=== PATIENT | female | born 1975 | race Caucasian/White ===

== ENCOUNTER 2016-09-01 08:55 | Emergency (ER) ==
--- NOTE | 2016-09-01 10:42 | PROVIDER DOCUMENTATION ---
HPI-Musculoskeletal Pain/Inj - GENERAL Chief Complaint: Extremity Pain Stated Complaint: EXTREMITY INJURY Time Seen by Provider: 09/01/16 10:17 Source: patient - HX OF PRESENT ILLNESS-MUSKULOSKELTAL Nature of Presenting Problem: 40 yo female presents to ER with c/o right hand and wrist pain and swelling for the past 3 weeks. She states she injured it pulling on a door that was stuck. She states that it does not hurt lying still but when she moves it it hurts in the lower hand wrist area. Quality of Pain: reports: aching, sharp Severity in ED: moderate Onset/Duration: other (3 weeks ago) Timing: still present Modifying Factors: improves with: movement (worsens), palpation (worsens) Any recent injury?: Yes (3 weeks ago) Locality of Occurance: Home Similar Symptoms Previously?: No Recently seen or treated by another doctor?: No - UPPER EXTREMITY PAIN/INJURY Extremities Pain Location: wrist: right, hand: right Context / Method of Injury: reports: twisted Review of Systems - Adult - REVIEW OF SYSTEMS - ADULT Constitutional: reports: no symptoms reported Eyes: reports: no symptoms reported Ears, Nose, Mouth & Throat: reports: no symptoms reported Cardiovascular: reports: no symptoms reported Respiratory: reports: no symptoms reported Gastrointestinal: reports: no symptoms reported Genitourinary: reports: no symptoms reported Musculoskeletal: reports: see HPI, joint pain, joint swelling Integumentary: reports: no symptoms reported Neurological: reports: no symptoms reported Psychiatric: reports: no symptoms reported Endocrine: reports: no symptoms reported Hematologic/Lymphatic: reports: no symptoms reported Allergic/Immunologic: reports: no symptoms reported All Other Systems: Reviewed and Negative Past History - Adult - PAST MEDICAL HISTORY-ADULT Review of Records: reports: Old Records Reviewed, Nursing Assessment Review, Medications Reviewed, Social history reviewed & non-contributory. Major Childhood Illnesses: reports: denies history Cardiovascular: reports: HTN Respiratory: reports: asthma, COPD, sleep apnea Gastrointestinal: reports: GERD Obstetrical/Gynecological: reports: denies history Genitourinary: reports: denies history Musculoskeletal: reports: denies history Neurological: reports: degenerative disease Psychiatric: reports: anxiety, depression Endocrine/Immune: reports: denies history Other Conditions: reports: denies history - PRIOR SURGERIES/PROCEDURES Surgical/Procedure History: reports: appendectomy, BTL, , other ( removal of toenails) - IMMUNIZATION STATUS Childhood Immunizations: See Nurse Assessment Flu Vaccine: See Nurse Assessment - FAMILY HISTORY Family History: reviewed, not pertinent - SOCIAL HISTORY Smoking: cigarettes, greater than 1 pack/day (1 ppd) Provider spent 3-5 mins advising pt. on dangers of tobacco.: Discussed manners to quit use, and f/u contacts for add'l counseling. Substance Use: none/never, denies Alcohol Use Frequency: never Living Situation: family Physical Exam-Injury Related - Physical Exam-Injury Related Initial Vital Signs Reviewed: Yes General Appearance: appears well, alert, no apparent distress Eyes: PERRL/EOMI Head, Ears, Nose, Mouth & Throat: normocephalic/atraumatic Respiratory: no respiratory distress Cardiovascular: normal peripheral pulses Peripheral Pulses: radial (R): 2+ Extremity: swelling (right wrist), tenderness (right wrist), other (pain with ROM) Integumentary: normal color, warm/dry Neurologic: grossly normal Psych/Mental Status: normal mood/affect, normal thought content, normal thought process, oriented x 3 - Glascow Coma Score Best Eye Response ([place]): (4) open spontaneously Best Verbal Response ([place]): (5) oriented Best Motor Response ([place]): (6) obeys commands [place] Total: 15 Progress - PLAN OF CARE/RESULTS Progress/Plan/Lab Results: 1115-Discussed x-ray results/dx/tx/discharge and follow up with orthopedic doctor; she verbalized understanding. Orders Category Date Time Status Wrist Splint DIRECTED Care 09/01/16 11:16 Active HAND COMPLETE RIGHT [RAD] Stat Exams 09/01/16 10:27 Taken WRIST COMPLETE RIGHT [RAD] Stat Exams 09/01/16 10:27 Taken Vital Signs - 24 hr 09/01/16 09/01/16 09:10 09:15 Temperature 98.6 F Pulse Rate 103 H 103 H Respiratory 20 20 Rate Blood Pressure 94/64 118/78 O2 Sat by Pulse 96 Oximetry - XRAY 1 XRAY: Right XRAY Study: Wrist, Hand Impression: Normal (NAD) XRAY Interpretation: Interpreted by Dr. Hadley Departure - Departure Time of Disposition Order: 11:21 DIAGNOSIS: Wrist pain, right, Swelling of joint, wrist, right Sprain of wrist, right Qualifiers: Encounter type: initial encounter Qualified Code(s): S63.501A - Unspecified sprain of right wrist, initial encounter Disposition: HOME 01 Certified Medical Emergency: Emergent Condition: Good Additional Instructions: Follow up with orthopedic doctor as needed. Take ibuprofen 600mg every 6 hours for pain. Wear wrist splint. Take medications as prescribed. ED Follow Up Instructions: You have been treated by a care provider in the Emergency Department. These instructions are being provided to you so you can have an understanding of how to care for yourself upon discharge. Upon discharge from the Emergency Department, you are responsible for making arrangements for follow-up care by a physician of your choice. Take all prescribed medications as directed. Return to the Emergency Department immediately for any new or worsening symptoms. You may call the Physician Referral phone number at [phone] to obtain a list of Physicians who are taking new patients. Prescriptions: Methylprednisolone [Medrol Dosepak] 4 mg PO DIRECTED #1 package Acetaminophen with Codeine [Tylenol with Codeine #3] 1 each PO Q6H PRN PRN #10 tablet PRN Reason: Pain Referrals: Abe Davila MD [Primary Care Provider] - Chloe Ureña MD [STAFF PHYSICIAN] - Attestation - Physician/ [place] Attestation Patient care was provided by Advanced Practice Provider:: Yes Advanced Practice Provider:: Christina Stevenson Advanced Practice Provider documentation review:: The Mid-level provider documentation, treatment plan and medical decision making was reviewed by the physician who agrees with all treatment and medical decision making by the [facility].
--- NOTE | 2016-09-01 11:25 | Diag Imaging Result Document ---
PROCEDURE NAME: WRIST COMPLETE RIGHT - 09/01/2016 RIGHT WRIST, 3 VIEWS: FINDINGS: There is no evidence of acute fracture or dislocation. Compared to 10/20/2015, there has been no significant change in the appearance of the wrist. IMPRESSION: No acute disease.
--- NOTE | 2016-09-01 11:27 | Diag Imaging Result Document ---
PROCEDURE NAME: HAND COMPLETE RIGHT - 09/01/2016 RIGHT HAND, 3 VIEWS: FINDINGS: There is no evidence of fracture or dislocation. No other definite bony abnormalities are present. IMPRESSION: No acute disease.
[2016-09-01 11:42] VITALS: BP 139/94
== END 2016-09-01 11:49 | disposition home or self-care (01) ==
LOC: P.ED 08:55
DX: S63.501A Unspecified sprain of right wrist, initial encounter (principal); M25.531 Pain in right wrist; M25.431 Effusion, right wrist; M79.641 Pain in right hand; I10 Essential (primary) hypertension; J44.9 Chronic obstructive pulmonary disease, unspecified; F17.210 Nicotine dependence, cigarettes, uncomplicated; Z71.6 Tobacco abuse counseling; X58.XXXA Exposure to other specified factors, initial encounter
CPT/HCPCS: 99283

== ENCOUNTER 2018-12-25 07:25 | Inpatient (IN) ==
[2018-12-25] MEDS ORDERED: DUONEB (A & A) INH ONE ×2 (07:44)
[2018-12-25] MEDS ORDERED: SOLU-MEDROL IV ONE (07:44)
[2018-12-25] MEDS ORDERED: ZOSYN 4.5 GM in NS 100 ML IV ONE ×2 (07:44→07:45)
[2018-12-25] MEDS ORDERED: NS 1,000 ML IV ONE (07:45)
[2018-12-25 08:25] LABS: BILIRUBIN URINE NEGATIVE (NEGATIVE); BLOOD URINE 3+ (NEGATIVE); CLARITY CLEAR (CLEAR); COLOR YELLOW; GLUCOSE URINE NEGATIVE (NEGATIVE); KETONE URINE NEGATIVE (NEGATIVE); LEUKOCYTES URINE NEGATIVE (NEGATIVE); NITRITE URINE NEGATIVE (NEGATIVE); PH URINE 6.5; UROBILINOGEN URINE NORMAL
[2018-12-25 08:26] LABS: URINE EPITHELIAL CELLS >10 /HPF (<10); URINE RBC 20-40 /HPF (<10); URINE SOURCE CLEAN CATCH; URINE WBC <10 /HPF (<10)
[2018-12-25 08:31] LABS: BASO# 0.03 X1000 (0.0-0.2); BASO% 0.3 % (0.0-0.8); EOS# 0.27 X1000 (0.0-0.7); EOS% 2.3 % (0.0-10.0); HEMATOCRIT 34.4 % (37.0-47.0); HEMOGLOBIN 11.1 g/dL (12.0-16.0); IMM GRAN# 0.03 X1000 (0.0-0.04); IMM GRAN% 0.3 % (0.0-0.5); LYMPH# 2.55 X1000 (1.2-3.4); MCH 29.8 PG (27-31); MCHC 32.3 g/dL (33-37); MCV 92.5 FL (81-99); MONO# 0.92 X1000 (0.11-0.59); MONO% 7.9 % (1.7-9.3); MPV 11.2 FL (7.4-10.4); NEUT# 7.81 X1000 (1.4-6.5); NEUT% 67.2 % (42.2-75.2); PLT 279 X1000 (130-400); RBC 3.72 XMIL (4.2-5.4); WBC 11.61 X1000 (4.8-10.8)
[2018-12-25 08:34] LABS: INR 0.92; PROTIME 12.8 Seconds (11.0-16.0)
[2018-12-25 08:35] LABS: PTT 30.3 Seconds (22.3-41.8)
[2018-12-25 08:47] LABS: AGAP 10; ALBUMIN 3.5 g/dL (3.5-5.0); ALKALINE PHOSPHATASE 60 U/L (32-104); BUN 18 mg/dL (8-22); CALCIUM 8.7 mg/dL (8.8-10.2); CHLORIDE 107 mmol/L (98-107); CK PROFILE 66 U/L (24-173); COSMO 283; CREATININE 0.5 mg/dL (0.5-0.9); ESTIMATED GFR > 60; GLUCOSE 96 mg/dL (70-104); GOT 15 U/L (10-30); GPT 14 U/L (10-36); SODIUM 141 mmol/L (136-145); TCO2 24 mmol/L (25-35); TOTAL PROTEIN 5.8 g/dL (6.3-8.3)
[2018-12-25] MEDS: SOLU-MEDROL IV ONE ×2 (08:53→15:21)
--- NOTE | 2018-12-25 08:55 | Diag Imaging Result Doc PS360 ---
EXAM: CHEST-2 VIEWS HISTORY: sob/cough TECHNIQUE: PA and Lateral chest x-ray COMPARISON: FINDINGS: There is cardiomegaly. There is suspected bilateral hilar adenopathy. Prominent right paratracheal density is suggestive of the spinal lymphadenopathy. There may also be a right perihilar nodule. Stable mild interstitial prominence at the right lung base. There are healing right lateral rib fractures. Left lung is clear. No effusion or pneumothorax. The pulmonary vasculature is not congested. IMPRESSION: 1.Suspect hilar and possibly mediastinal lymphadenopathy. Consider follow-up CT thorax with IV contrast. 2.Possible right perihilar nodule. 3.Cardiomegaly. Electronically signed by Ronda Rolon 12/25/2018 8:52 AM
--- NOTE | 2018-12-25 09:19 | EKG Report ---
Test Performed on : 12/25/2018 08:06:22 AM Test Reason : ER Blood Pressure : / mmHG Vent. Rate : 110 BPM Atrial Rate : 110 BPM P-R Int : 144 ms QRS Dur : 072 ms QT Int : 314 ms P-R-T Axes : 073 071 056 degrees QTc Int : 424 ms Sinus tachycardia. Low voltage QRS Cannot rule out Anteroseptal infarct (cited on or before 06-APR-2009) Abnormal ECG When compared with ECG of 08-MAR-2017 10:42, No significant change was found Unconfirmed Result
[2018-12-25] MEDS ORDERED: TORADOL IV ONE (09:53)
--- NOTE | 2018-12-25 10:40 | Diag Imaging Result Doc PS360 ---
EXAM: CT THORAX W/CONTRAST HISTORY: mediastinal adenopathy on x-ray TECHNIQUE: Images were obtained from the lung apices through bases following IV contrast as per standard protocol. COMPARISON: None. FINDINGS: There is bulky mediastinal lymphadenopathy. There is a 2.6 x 2.0 cm right paratracheal lymph node. 2.4 x 1.4 cm prevascular lymph node. There is marked subcarinal lymphadenopathy. There is mild left hilar lymphadenopathy. There is a right perihilar mass measuring 4.6 cm compressing the right lower lobe bronchus and producing right lower lobe atelectasis and consolidation. No evidence for aortic aneurysm or dissection. There is a pulmonary nodule right upper lobe. There is a 9 mm calcified component and a 9.6 mm noncalcified component. No other pulmonary nodules. No significant effusion. No bony lesions are identified. There are old healed right rib fractures. Posterior segment right lobe of the liver shows a hypodensity which could be related to artifact. Recommend follow-up CT abdomen and pelvis with IV contrast. IMPRESSION: 1.Large right perihilar mass measuring at least 4.6 cm compressing the right lower lobe bronchus with right lower lobe consolidation and atelectasis. 2.Bilateral hilar and mediastinal lymphadenopathy. 3.Indeterminate right upper lobe pulmonary nodule with both calcified and soft tissue components. 4.Considerations include primary lung carcinoma, lymphoma, sarcoidosis. 5.Vague hypodensity within the posterior right lobe of liver. Recommend follow-up CT abdomen and pelvis with IV and oral contrast. This exam was performed using automated exposure control, adjustment of mA or kV according to patient size, and/or use of iterative reconstruction technique. Electronically signed by Ronda Rolno 12/25/2018 10:37 AM
[2018-12-25] MEDS ORDERED: VANCOMYCIN 1 GM/NS 1 GM/250 ML IVPB IV ONE (11:07)
[2018-12-25] MEDS ORDERED: MORPHINE IV ONE (11:09)
[2018-12-25] MEDS ORDERED: ZOFRAN IV ONE (11:09)
--- NOTE | 2018-12-25 11:16 | PROVIDER DOCUMENTATION ---
This chart was entered by Kinga Wolf Scribe, acting as scribe for Ramón Herman MD. HPI-Respiratory General - General Chief Complaint: Cough Stated Complaint: COUGH / SOB Time Seen by Provider: 12/25/18 07:39 Source: patient Allergies/Adverse Reactions: Patient Allergies Allergy/AdvReac Type Severity Reaction Status Date / Time No Known Allergies Allergy Verified 11/06/18 13:51 Home Medications: Home Medication List Medication Instructions Recorded Confirmed Last Taken Type Lisinopril 2 tab PO DAILY 01/17/17 12/14/18 11/27/18 History Potassium Chloride 1 tab PO DAILY 01/17/17 12/14/18 11/27/18 History Amlodipine Besylate 10 mg PO DAILY 09/24/18 12/14/18 11/27/18 History Furosemide [Lasix] 40 mg PO DAILY 09/24/18 12/14/18 11/27/18 History Albuterol Sulfate Inhaler 2 puff INH Q6H PRN PRN #1 inhaler 11/27/18 12/14/18 Unknown Rx [Ventolin Hfa] Albuterol [Albuterol Neb] 2.5 mg INH Q4H 12/14/18 12/14/18 Unknown History Benzonatate [Tessalon Perle] 100 mg PO Q8H PRN #20 cap 12/14/18 Unknown Rx Naproxen Sodium [Anaprox Ds] 550 mg PO Q12H PRN #20 tab 12/14/18 Unknown Rx - History of Present Illness-Resp Nature of Presenting Problem: Patient is a 43 year old female who presents with shortness of breath and cough. States history of bronchitis, pneumonia and COPD exacerbation. Reports recently being diagnosed with pneumonia. States she has home oxygen but does not use because her O2 sat has been within normal range. Does not report chest pain. Denies fever and chills. Quality of Pain: reports: tightness Severity in ED: reports: mild Onset/Duration: reports: gradual Timing: reports: still present, getting worse Cough Quality/Degree: reports: moderate, productive cough, sputum Episode Frequency: frequent episodes Current Respiratory Medication Therapy: Initiated see nurses note Modifying Factors: improves with: antibiotics Associated Symptoms: reports: cough, shortness of breath Similar Symptoms Previously?: Yes Recently seen or treated by another doctor?: Yes Review of Systems - Adult - REVIEW OF SYSTEMS - ADULT Constitutional: reports: no symptoms reported. denies: chills, fever, fatique Eyes: reports: no symptoms reported Ears, Nose, Mouth & Throat: reports: no symptoms reported Cardiovascular: reports: no symptoms reported. denies: chest pain, irregular heart rate, palpitations Respiratory: reports: see HPI, cough, shortness of breath. denies: wheezing Gastrointestinal: reports: no symptoms reported Genitourinary: reports: no symptoms reported Musculoskeletal: reports: no symptoms reported Integumentary: reports: no symptoms reported Neurological: reports: no symptoms reported Psychiatric: reports: no symptoms reported Endocrine: reports: no symptoms reported Hematologic/Lymphatic: reports: no symptoms reported Allergic/Immunologic: reports: no symptoms reported All Other Systems: Reviewed and Negative Past History - Adult - PAST MEDICAL HISTORY-ADULT Review of Records: reports: Old Records Reviewed, Nursing Assessment Review, Medications Reviewed, Social history reviewed & non-contributory. Major Childhood Illnesses: reports: denies history Cardiovascular: reports: HTN Respiratory: reports: asthma, COPD, sleep apnea Gastrointestinal: reports: GERD Obstetrical/Gynecological: reports: denies history Genitourinary: reports: denies history Musculoskeletal: reports: chronic pain Neurological: reports: degenerative disease Psychiatric: reports: anxiety, depression Endocrine/Immune: reports: denies history Other Conditions: reports: denies history - PRIOR SURGERIES/PROCEDURES Surgical/Procedure History: reports: appendectomy, BTL, - IMMUNIZATION STATUS Childhood Immunizations: See Nurse Assessment Flu Vaccine: See Nurse Assessment - FAMILY HISTORY Family History: reviewed, not pertinent - SOCIAL HISTORY Smoking: cigarettes, less than 1 pack/day Provider spent 3-5 mins advising pt. on dangers of tobacco.: Discussed manners to quit use, and f/u contacts for add'l counseling. Substance Use: denies Physical Exam-General - PHYSICAL EXAM-ADULT Initial Vital Signs Reviewed: Yes - CONSTITUTIONAL General Appearance: alert, no apparent distress, anxious. negative: lethargic, slow to respond - HEAD, EARS, NOSE, MOUTH & THROAT HENMT: normocephalic/atraumatic, moist mucous membranes, pharynx normal. negati ve: angioedema - RESPIRATORY Respiratory: chest non-tender, rhonchi (bilateral), wheezing (bilateral), increased rate. negative: respiratory distress - CARDIOVASCULAR Cardiovascular: normal peripheral pulses, tachycardia. negative: systolic murmur - GASTROINTESTINAL (ABDOMEN) Abdominal Exam: normal bowel sounds, non tender, soft. negative: guarding, rebound - MUSCULOSKELETAL Extremity: non-tender, normal inspection. negative: deformity, erythema, swelling - SKIN Integumentary: normal color, normal turgor, warm/dry. negative: cyanosis, pallor, rash - NEUROLOGIC Neurologic: grossly normal. negative: aphasia, facial droop - PSYCHIATRIC Psych/Mental Status: oriented x 3, anxious. negative: normal mood/affect Progress - PLAN OF CARE/RESULTS Progress/Plan/Lab Results: Vital Signs - 8 hr 12/25/18 07:27 12/25/18 08:00 12/25/18 08:47 Temperature 98.5 F Pulse Rate 119 H 106 H 112 H Respiratory Rate 22 22 24 Blood Pressure 138/83 128/80 O2 Sat by Pulse Oximetry 93 L 92 L 96 12/25/18 08:55 12/25/18 09:05 Temperature Pulse Rate 101 H 104 H Respiratory Rate 20 20 Blood Pressure O2 Sat by Pulse Oximetry Bedside Urine ED: Urine Bedside Start: 12/25/18 07:33 Freq: ORDERED Status: Active Protocol: Activity Type Activity Date Activity User E-Sign Co-Sign Detail Recorded Client Recorded Date Recorded By Document 12/25/18 07:42 [id number] 12/25/18 07:42 [id number] 12/25/18 07:42 Point of Care [Bedside Point of Care] -Lot # [id number] - Results Negative -Control Line Visible? Yes Laboratory Results - last 24 hr 12/25/18 12/25/18 12/25/18 07:30 07:42 07:51 WBC RBC Hgb Hct MCV MCH MCHC RDW Std Deviation Plt Count MPV Immature Gran % (Auto) Neut % (Auto) Lymph % (Auto) [place] % (Auto) Eos % (Auto) Baso % (Auto) Immature Gran # (Auto) Neut # (Auto) Lymph # (Auto) [place] # (Auto) Eos # (Auto) Baso # (Auto) PT INR PTT (Actin FS) Sodium Potassium Chloride Carbon Dioxide Anion Gap BUN Creatinine Estimated GFR/1.73 m2 BUN/Creatinine Ratio Glucose Calculated Osmolality Calcium Total Bilirubin AST ALT Alkaline Phosphatase Creatine Kinase Troponin T < 0.010 Total Protein Albumin Globulin Albumin/Globulin Ratio Plasma Lactate 0.7 Urine Source CLEAN CATCH Urine Color YELLOW Urine Clarity CLEAR Urine pH 6.5 Ur Specific [place] 1.020 Urine Protein 3+(500 mg/dL) A Urine Ketones NEGATIVE Urine Blood 3+ A Urine Nitrite NEGATIVE Urine Bilirubin NEGATIVE Urine Urobilinogen NORMAL Urine Microscopic RBC 20-40 A Urine WBC NEGATIVE Urine Microscopic WBC <10 Ur Epithelial Cells >10 A Urine Glucose NEGATIVE 12/25/18 12/25/18 12/25/18 07:51 07:51 07:51 WBC 11.61 H RBC 3.72 L Hgb 11.1 L Hct 34.4 L MCV 92.5 MCH 29.8 MCHC 32.3 L RDW Std Deviation 15.0 H Plt Count 279 MPV 11.2 H Immature Gran % (Auto) 0.3 Neut % (Auto) 67.2 Lymph % (Auto) 22.0 [place] % (Auto) 7.9 Eos % (Auto) 2.3 Baso % (Auto) 0.3 Immature Gran # (Auto) 0.03 Neut # (Auto) 7.81 H Lymph # (Auto) 2.55 [place] # (Auto) 0.92 H Eos # (Auto) 0.27 Baso # (Auto) 0.03 PT 12.8 INR 0.92 PTT (Actin FS) 30.3 Sodium 141 Potassium 4.0 Chloride 107 Carbon Dioxide 24 L Anion Gap 10 BUN 18 Creatinine 0.5 Estimated GFR/1.73 m2 > 60 BUN/Creatinine Ratio 36 Glucose 96 Calculated Osmolality 283 Calcium 8.7 L Total Bilirubin 0.20 AST 15 ALT 14 Alkaline Phosphatase 60 Creatine Kinase 66 Troponin T Total Protein 5.8 L Albumin 3.5 Globulin 2.0 Albumin/Globulin Ratio 2.0 Plasma Lactate Urine Source Urine Color Urine Clarity Urine pH Ur Specific [place] Urine Protein Urine Ketones Urine Blood Urine Nitrite Urine Bilirubin Urine Urobilinogen Urine Microscopic RBC Urine WBC Urine Microscopic WBC Ur Epithelial Cells Urine Glucose Orders Category Date Time Status Cardiac Monitoring DIRECTED Care 12/25/18 07:33 Active ED: Urine Bedside ORDERED Care 12/25/18 07:33 Active IV Insertion ORDERED Care 12/25/18 07:33 Completed Notify MD of + Sepsis Screen NOW Care 12/25/18 07:33 Active CHEST-2 VIEWS [RAD] Stat Exams 12/25/18 07:[address] THORAX W/CONTRAST [CT] Stat Exams 12/25/18 09:37 Completed ABG [RESP] Routine Lab 12/25/18 11:06 Ordered BLOOD CULTURE [BLDCUL] Stat Lab 12/25/18 07:42 Ordered CBC WITH DIFF [HEME] Stat Lab 12/25/18 07:51 Completed CK PROFILE [SP CHEM] Stat Lab 12/25/18 07:51 Completed COMPREHENSIVE METABOLIC PANEL [CHEM] Stat Lab 12/25/18 07:51 Completed LACTATE, PLASMA [CHEM] Lab 12/25/18 11:01 Ordered LACTATE, PLASMA [CHEM] Lab 12/25/18 13:45 Uncollected LACTATE, PLASMA [CHEM] Q3H Lab 12/25/18 07:51 Completed PROTIME WITH INR [COAG] Stat Lab 12/25/18 07:51 Completed PTT [COAG] Stat Lab 12/25/18 07:51 Completed TROPONIN T Stat Lab 12/25/18 07:[address] W/POSS RFLX CULT [URINALYSIS] Stat Lab 12/25/18 07:30 Completed 0.9% Sodium Chloride Inj [Ns] 1,000 ml Med 12/25/18 07:45 Active IV 999 mls/hr Albuterol 2.5MG/Ipratrop 0.5MG [Duoneb (A & A)] Med 12/25/18 07:44 Once 9 ml INH NOW ONE Ketorolac [Toradol] Med 12/25/18 09:53 Discontinued 30 mg IV NOW ONE Methylprednisolone Sod Succ [Solu-Medrol] Med 12/25/18 07:44 Once 125 mg IV NOW ONE Morphine Med 12/25/18 11:09 Discontinued 4 mg IV NOW ONE Ondansetron [Zofran] Med 12/25/18 11:09 Discontinued 4 mg IV NOW ONE Piperacillin/Tazobactam [Zosyn] 4.5 gm Med 12/25/18 07:45 Active 0.9% Sodium Chloride Inj [Ns] 100 ml IV NOW Vancomycin 1 gm/Ns Med 12/25/18 11:07 Active 1 gm in 250 ml IV NOW Aerosol Treatments Routine Oth 12/25/18 07:45 Completed Aerosol Treatments Stat Oth 12/25/18 07:45 Completed Oxygen Device Stat Oth 12/25/18 07:33 Completed EKG [EKG] Routine Ther 12/25/18 Draft Result Diagrams: 12/25/18 07:51 12/25/18 07:51 - REASSESSMENT Reassessment #1 Time Reassessed: 11:12 Status: improving (still complains of chest/back pain and wheezing. CT scan very abnormal and much changed from prior CXR.) Reassessment Comment: Patient has 2 SIRS criteria and PNE, so has sepsis without end organ damage - EKG 1 Time of EKG reading by physician:: 08:06 EKG Read and Signed by:: Ramón Herman EKG Interpretation (*Must complete 3 of following elements*): Abnormal Rate: 110 Rhythm: sinus tachycardia Hiko: normal QRS: other (low voltage) [place] Interval: normal Comments: cannout rule out anteroseptal infarct, age undetermined - XRAY 1 XRAY Study: Chest Impression: See EMR Report (EXAM: CHEST-2 VIEWS HISTORY: sob/cough TECHNIQUE: PA and Lateral chest x-ray COMPARISON: FINDINGS: There is cardiomegaly. There is suspected bilateral hilar adenopathy. Prominent right paratracheal density is suggestive of the spinal lymphadenopathy. There may also be a right perihilar nodule. Stable mild interstitial prominence at the right lung base. There are healing right lateral rib fractures. Left lung is clear. No effusion or pneumothorax. The pulmonary vasculature is not congested. IMPRESSION: 1.Suspect hilar and possibly mediastinal lymphadenopathy. Consider follow-up CT thorax with IV contrast. 2.Possible right perihilar nodule. 3.Cardiomegaly. Electronically signed by Ronda Rolon 12/25/2018 8:52 AM 12/25/18 0852 Interpreting Physician: Ronda Rolon MD Dictated Date/Time: 12/25/18 0850 cc: Ramón Herman MD; None,PCP) - CT/MRI 1 CT Study: Thorax Impression: See EMR Report ( EXAM: CT THORAX W/CONTRAST HISTORY: mediastinal adenopathy on x-ray TECHNIQUE: Images were obtained from the lung apices through bases following IV contrast as per standard protocol. COMPARISON: None. FINDINGS: There is bulky mediastinal lymphadenopathy. There is a 2.6 x 2.0 cm right paratracheal lymph node. 2.4 x 1.4 cm prevascular lymph node. There is marked subcarinal lymphadenopathy. There is mild left hilar lymphadenopathy. There is a right perihilar mass measuring 4.6 cm compressing the right lower lobe bronchus and producing right lower lobe atelectasis and consolidation. No evidence for aortic aneurysm or dissection. There is a pulmonary nodule right upper lobe. There is a 9 mm calcified component and a 9.6 mm noncalcified component. No other pulmonary nodules. No significant effusion. No bony lesions are identified. There are old healed right rib fractures. Posterior segment right lobe of the liver shows a hypodensity which could be related to artifact. Recommend follow-up CT abdomen and pelvis with IV contrast. IMPRESSION: 1.Large right perihilar mass measuring at least 4.6 cm compressing the right lower lobe bronchus with right lower lobe consolidation and atelectasis. 2.Bilateral hilar and mediastinal lymphadenopathy. 3.Indeterminate right upper lobe pulmonary nodule with both calcified and soft tissue components. 4.Considerations include primary lung carcinoma, lymphoma, sarcoidosis. 5.Vague hypodensity within the posterior right lobe of liver. Recommend follow-up CT abdomen and pelvis with IV and oral contrast. This exam was performed using automated exposure control, adjustment of mA or kV according to patient size, and/or use of iterative reconstruction technique. Electronically signed by Ronda Rolon 12/25/2018 10:37 AM 12/25/18 1037 Interpreting Physician: Ronda Rolon MD Dictated Date/Time: 12/25/18 [facility] cc: Ramón Herman MD; None,PCP) - CONSULTS/PCP/HOSPITALIST Notification #1 *Consult/PCP/Hospitalist*: Chad Time Discussed: 11:12 Reason/Comments: will [facility] consult Consult Disposition: Will see in ED Departure - Departure Date of Disposition Decision: 12/25/18 Time of Disposition Decision: 11:13 DIAGNOSIS: Mass of middle lobe of right lung, Sepsis without acute organ dysfunction, Lymphadenopathy, hilar, Tobacco use disorder, continuous Right middle lobe pneumonia Qualifiers: Pneumonia type: due to unspecified organism Qualified Code(s): J18.1 - Lobar pneumonia, unspecified organism Disposition: ADMITTED INPATIENT 09 Certified Medical Emergency: Emergent Condition: Fair Referrals and Follow-Ups: None,PCP [Primary Care Provider] - - Critical Care Note This patient required my direct & personal management of CC.: Yes Total Time (mins): 40 (review of old records, treatemnt for respiratory abnormalities/sepsis, multiple visits to bedside) Critical Care Statement: This patient required my direct personal management to treat or rule out processes, the absence of which, could potentiallly result in sudden, clinically significant life or limb threatening deterioration. Attestation - Physician/ SCARLET Attestation Patient care was provided by Advanced Practice Provider:: No The physician spent face to face time with patient:: Yes Advanced Practice Provider documentation review:: Supervising physician onsite and consulted in the evaluation and care of this patient. The physician did have a face to face encounter with the patient. This chart was documented by the indicated scribe, (Kinga Wolf Scribe) and accurately reflects the services I performed and decisions made by me, Ramón Herman MD, as attested by the provider's signature.
[2018-12-25] MEDS: NICODERM PATCH TD SCH (11:50)
[2018-12-25 11:58] LABS: BLOOD TYPE ARTERIAL; HCO3-(ACT) 23.1 mmoll (20.0-26.0); METHB 1.1 % (0.0-1.5); PCO2(98.6) 40 mmHg (35-45); PO2(98.6) 58 mmHg (60-100); SAMPLE BLOOD; SAO2 93.5 % (95.0-100.0); THB 11.5 g/dL (11.5-17.4); pH(98.6) 7.37 (7.35-7.45)
[2018-12-25 12:00] LABS: O2HB 86.2 % (95.0-99.0)
[2018-12-25 12:01] LABS: ALLEN TEST YES; MODALITY ROOM AIR
--- NOTE | 2018-12-25 12:40 | HISTORY AND PHYSICAL ---
PRIMARY CARE PHYSICIAN: None. CHIEF COMPLAINT: Worsening shortness of breath and cough over the past couple of days, but has been present since her last admission in September where she was treated for a pneumonia. HISTORY OF PRESENTING ILLNESS: This is a 43-year-old female who presents to [facility] ER with complaints of worsening shortness of breath and a productive cough that have worsened over the last 2 days. The patient states she was in the hospital back in September of this year and diagnosed with a pneumonia, and that the symptoms have been present on and off since then, but have worsened over those last 2 days. She states that she has home oxygen and normally does not use it, but has had to use it in the last couple of days to keep her sats up, and her shortness of breath from worsening. Her workup showed a white blood cell count of 11.61. Chest x-ray showed suspect hilar and possibly mediastinal lymphadenopathy so consider a followup CT thorax with IV contrast. We did do a chest CT that showed a large right perihilar mass measuring at least 4.6 cm compressing the right lower lobe bronchus with right lower lobe consolidation and atelectasis, bilateral hilar and mediastinal lymphadenopathy, and an indeterminate right upper lobe pulmonary nodule with both calcified and soft tissue components, and of a hypodensity within the posterior right lobe of the liver. Recommend a CT of the abdomen and pelvis with IV and oral contrast. She will be admitted to the [facility] for pulmonary consultation for further evaluation and treatment. PAST MEDICAL HISTORY: COPD, hypertension, sleep apnea, GERD, chronic pain, degenerative disk disease, anxiety and depression. PAST SURGICAL HISTORY: Appendectomy, bilateral tubal ligation, and . FAMILY HISTORY: Reviewed and noncontributory. SOCIAL HISTORY: She currently lives with a friend. States that she has reduced her smoking from a pack a day down to 3 or 4 cigarettes a day, but has been a smoker for 30 years. Denies any alcohol or illicit drug use. ALLERGIES: She has no known drug allergies. HOME MEDICATIONS: We will need to obtain a current list. Reconcile, review and restart as appropriate. We will place an order for nursing to update and confirm home medications. LABORATORY DATA: White blood cell count of 11.61, hemoglobin 11.1, hematocrit 34.4, and platelets 279,000. PT and INR of 12.8 and 0.92. Sodium 141, potassium 4, chloride 107, CO2 24, BUN of 18, creatinine 0.5 with glucose of 86. Plasma lactate of 0.7. Urinalysis 3+ blood, negative nitrites, negative white blood cells, greater than 10 epithelial cells. EKG sinus tachycardia of 110. Chest x-ray showed suspect hilar and possibly mediastinal lymphadenopathy, and a possible right perihilar nodule and cardiomegaly. Consider a followup CT of the thorax with IV contrast. We obtained that CT of the chest. It showed a large right perihilar mass measuring at least 4.6 cm compressing the right lower lobe bronchus with a right lower lobe consolidation and atelectasis. Bilateral hilar and mediastinal lymphadenopathy, and an indeterminate right upper lobe pulmonary nodule. Considerations including primary lung carcinoma, lymphoma and sarcoidosis was given. Vague hypodensity within the posterior right lobe of the liver. Consider a CT of the abdomen and pelvis with IV and oral contrast. REVIEW OF SYSTEMS: She denied any fever, chills, blurred vision, dizziness, or chest pain. She has had a productive cough, shortness of breath. Denied any abdominal pain, constipation, diarrhea, burning or hurting with urination. PHYSICAL EXAMINATION: On arrival, she had a temperature of 98.5 degrees, pulse was 119, respirations 22, blood pressure 138/83, and saturating 93% on room air. GENERAL: This is a 43-year-old female who is sitting up in the bed and answers questions appropriately. HEENT: Normocephalic, atraumatic. Normal ENT inspection. Oropharynx and nares are clear. EYES: Pupils are equal, round, and reactive to light and accommodation. Extraocular movements are intact. NECK: Normal inspection. Normal range of motion. LUNGS: On arrival, ER documentation stated she had rhonchi bilaterally and wheezing bilaterally with some tachypnea. Currently, her upper lobes sound clear, diminished in bilateral bases. Equal lung expansion. Chest wall movement noted. O2 via nasal cannula currently in use. HEART: Regular rate and rhythm. No murmurs, rubs, or gallops. ABDOMEN: Soft, nontender, and nondistended. Bowel sounds are present x4 quadrants. MUSCULOSKELETAL: She has 5/5 strength x4 extremities. NEUROLOGICAL: The cranial nerves 2-12 appear grossly intact. ASSESSMENT: 1. Right large perihilar mass. 2. Right lower lobe pneumonia. 3. Right upper lobe pulmonary nodule. 4. Hypodensity in the posterior right lobe of the liver. 5. Tobacco abuse. PLAN: She will be admitted to the medical unit at [facility] on Zosyn 3.375 g IV q.6. Vancomycin per pharmacy protocol. Place her on steroids of methylprednisolone 80 mg IV q.8. We will wean as she improves. Consult Dr. Mello of Pulmonology and Dr. Ruperto Castellanos from Oncology. We will place on DuoNeb's q.4 hours. We will give her a nicotine patch. We will update and confirm home medications and restart those as appropriate. Discussed smoking cessation with this patient who verbalizes understanding. The patient is tearful at this time, as she is certainly worried that she may have now lung cancer. Further testing will need to be done before that diagnosis can be given. Dictated by MANDEEP Rosas for Lane Pena MD Addendum: Patient seen and examined by myself. Agree with MANDEEP note. It reflects my assessment and plan. Patient is being admitted to hospital for a newly found large right perihilar mass. Pulmonary and Oncology consulted. Will provide antibiotics for pneumonia. Will monitor patient closely. cc: MANDEEP Rosas MD [facility]
[2018-12-25] MEDS ORDERED: VANCOMYCIN IV PER PHARMACY MISC SCH (13:27)
[2018-12-25] MEDS ORDERED: TYLENOL PO PRN (13:27)
[2018-12-25] MEDS: ZOSYN 3.375 GM in NS 50 ML IV SCH ×2 (15:07→23:18)
[2018-12-25] MEDS: NORCO-10 PO PRN ×3 (15:07→23:18)
[2018-12-25] MEDS: KLONOPIN PO PRN ×2 (15:07→23:18)
[2018-12-25] MEDS: DUONEB (A & A) INH SCH ×3 (15:28→23:05)
[2018-12-25] MEDS: SOLU-MEDROL IV SCH ×2 (18:11→23:17)
--- NOTE | 2018-12-25 19:05 | HEMO/ONC CONSULTATION ---
DATE: 12/25/2018 CONSULTATION REQUESTED BY: The hospitalist service. REASON FOR CONSULTATION: New lung mass. HISTORY OF PRESENT ILLNESS: Ms. Santo is a 43-year-old, female who came to [facility] ER complaining of worsening shortness of breath as well as a productive cough. She was found to have a large lung mass on her CT scan, and we have been consulted for further evaluation and treatment. The patient is already set up to receive her bronchoscopy with Dr. Mello on Sunday. It appears that the patient was recently in the hospital back in September of this year with pneumonia. PAST MEDICAL HISTORY: 1. COPD. 2. Hypertension. 3. Sleep apnea. 4. GERD. 5. Chronic pain. 6. Degenerative disk disease. PAST SURGICAL HISTORY: 1. Appendectomy. 2. Bilateral tubal ligation. FAMILY HISTORY: No report of any malignancy in the patient's family. SOCIAL HISTORY: The patient currently lives with a friend. She is a current every day smoker and has probably close to a 30 or more pack-year history. She denies any alcohol or illicit drug use. REVIEW OF SYSTEMS: A 12 point review of systems was completed and is negative except for expressed in HPI. PHYSICAL EXAMINATION: Vital Signs: Temperature 98 degrees, heart rate 107, respirations 20, blood pressure 141/78, O2 saturation 95% on 2 L nasal cannula. General: This is a female sitting in her hospital bed in no acute distress. Head: Normocephalic, atraumatic. Eyes: Pupils equal, round, reactive. Ears, Nose, Throat, Neck, Mouth: Mucosa normal. Cardiovascular: Tachycardia noted, but regular rhythm. Respiratory: Coarse breath sounds auscultated throughout. Gastrointestinal: Abdomen is soft. Musculoskeletal: No bony abnormalities. Extremities: Some trace edema noted. Neurologic: Patient is alert and oriented with no focal deficits noted at this time. LABS AND STUDIES: White blood cells 11.61, hemoglobin 11.1, hematocrit 34.4, platelet count 279,000. Sodium 141, potassium 4.0, chloride 107, CO2 24, BUN 18, creatinine 0.5, glucose 96. The patient had a CT of the chest done with contrast which shows a large right perihilar mass, measuring at least 4 cm, compressing the right lower lobe bronchus with right lower lobe consolidation and atelectasis. Bilateral hilar and mediastinal lymphadenopathy. Indeterminate right upper lobe pulmonary nodule with both calcified and soft tissue components. Vague hypodensity within the posterior right lobe of the liver. ASSESSMENT AND PLAN: 1. Large right perihilar mass. We recommend biopsy. Again, the patient is already set up to see Dr. Mello here and to get a bronchoscopy on Sunday. We will follow up on the pathology results when they become available. We will go ahead and check an LDH. A CEA has already been ordered. Will follow up on those results as well. 2. Vague hypodensity within the posterior right lobe of the liver. A CT of the abdomen has already been ordered, and we agree with further evaluation. We will follow up again with that scan once it becomes available. 3. Chronic obstructive pulmonary disease. Patient is currently on intravenous steroids as well as antibiotic coverage per the primary team. 4. Pain. Seems to be well managed currently per the primary team. Thank you for consulting us on Ms. Santo. We will continue to follow along and adjust our treatment plan per her hospital course. Dictated by ARTEM Gonzalez for Armida Aaron MD cc: Armida Aaron MD
[2018-12-25] MEDS: VANCOMYCIN 2 GM in NS 500 ML IV SCH (19:56)
--- NOTE | 2018-12-25 21:49 | PULMONOLOGY CONSULTATION ---
DATE: 12/25/2018 REASON FOR CONSULTATION: Lung mass. HISTORY OF PRESENT ILLNESS: Ms. Santo is 43-year-old white female with a diagnosis of COPD who reports she has been ill for the last 3 to 4 months. The patient was admitted to [facility] in September with persistent cough. She reports she was diagnosed with pneumonia. She reports she did not have fevers, chills, or significant sputum production. Since that time she has had several courses of steroids and antibiotics, per her report, without improvement. She presented to the emergency room today with ongoing cough and shortness of breath. She continues to smoke. Chest x-ray revealed a right hilar fullness, and CT scan of the thorax was performed which revealed extensive paratracheal adenopathy, a large lymph node lateral to the arch of the aorta, and significant subcarinal adenopathy with extension of a mass into the right lower lobe with obstruction of this segments of the right lower lobe. PAST MEDICAL HISTORY: 1. Chronic obstructive pulmonary disease with ongoing tobacco use. 2. Morbid obesity with a BMI greater than 40. 3. Obstructive sleep apnea. 4. Hypertension. 5. Anxiety/depressive disorder. 6. Chronic pain syndrome. PAST SURGICAL HISTORY: 1. Status post tubal ligation. 2. Appendectomy. SOCIAL HISTORY: Tobacco use since the age of 13. She denies alcohol use. REVIEW OF SYSTEMS: Notable for persistent cough, shortness of breath, recent change in voice. PHYSICAL EXAMINATION: General: Reveals an obese white female resting comfortably in her bed. She is without specific complaints. Vital Signs: BP 141/78, heart rate 107, respiratory rate 20, oxygen saturation 95% on nasal cannula. HEENT: Pupils are equal and reactive. Oropharynx appears clear. Neck: Supple. Chest: Reveals diminished breath sounds right base with prolonged expiratory phase. Cardiac Exam: S1-S2. Abdomen: Obese and soft. Extremities: Reveal trace edema. LABORATORIES: White blood count 11.6, hemoglobin 11.1, platelet count 279,000. Arterial blood gas reveals a pH of 7.37, pCO2 of 40, pO2 of 58 with a carboxyhemoglobin of 6.7. CT scan as per HPI. CEA level is normal at 1.5. IMPRESSION: A 43-year-old with: 1. Acute hypoxemic respiratory failure. 2. Chronic obstructive pulmonary disease. 3. Large right lower lobe/right hilar mass. 4. Extensive mediastinal adenopathy. 5. Ongoing tobacco use. 6. Morbid obesity. RECOMMENDATIONS: 1. We will proceed with bronchoscopy with endobronchial biopsies on Sunday morning. 2. Encourage smoking cessation. 3. Prognosis appears to be guarded. cc: Arash Mello MD
[2018-12-25] MEDS ORDERED: TESSALON PO PRN (23:04)
[2018-12-25] MEDS: NORVASC PO SCH (23:24)
[2018-12-26] MEDS: PRINIVIL PO SCH ×2 (00:25→09:32)
[2018-12-26] MEDS: DUONEB (A & A) INH SCH ×6 (03:17→23:19)
[2018-12-26] MEDS: NORCO-10 PO PRN ×5 (03:21→23:42)
[2018-12-26] MEDS: ZOSYN 3.375 GM in NS 50 ML IV SCH ×4 (03:22→20:36)
[2018-12-26] MEDS: SOLU-MEDROL IV SCH ×3 (05:45→20:35)
[2018-12-26 07:36] LABS: BASO# 0.01 X1000 (0.0-0.2); BASO% 0.1 % (0.0-0.8); HEMATOCRIT 34.3 % (37.0-47.0); HEMOGLOBIN 11.1 g/dL (12.0-16.0); IMM GRAN# 0.06 X1000 (0.0-0.04); IMM GRAN% 0.4 % (0.0-0.5); LYMPH# 0.84 X1000 (1.2-3.4); LYMPH% 5.8 % (20.5-51.1); MCH 29.6 PG (27-31); MCHC 32.4 g/dL (33-37); MCV 91.5 FL (81-99); MONO# 0.39 X1000 (0.11-0.59); MONO% 2.7 % (1.7-9.3); NEUT# 13.18 X1000 (1.4-6.5); PLT 273 X1000 (130-400); RBC 3.75 XMIL (4.2-5.4); RDW 14.7 % (11.5-14.5); WBC 14.48 X1000 (4.8-10.8)
[2018-12-26 08:17] LABS: AGAP 11; BUN 18 mg/dL (8-22); CALCIUM 8.5 mg/dL (8.8-10.2); CHLORIDE 106 mmol/L (98-107); COSMO 286; CREATININE 0.6 mg/dL (0.5-0.9); ESTIMATED GFR > 60; GLUCOSE 178 mg/dL (70-104); LDH 228 U/L (135-214); SODIUM 140 mmol/L (136-145); TCO2 23 mmol/L (25-35)
--- NOTE | 2018-12-26 08:30 | Diag Imaging Result Doc PS360 ---
EXAM: CT ABD/PELVIS W/PO AND IV CON 12/26/2018 HISTORY: eval Liver hypodensity TECHNIQUE: This exam was performed using automated exposure control, adjustment of mA or kV according to patient size, and/or use of iterative reconstruction technique. COMMENT: The current examination is compared to the previous noncontrast study of 12/06/2014. There is volume loss and masslike opacity in the right lower lobe which was not the case at the time the previous study. There is apparent bronchial obstruction. There are patchy areas of air trapping in the left lower lobe. This was present previously. Contrast opacification of the solid organs is somewhat suboptimal. The hypodense abnormality which was demonstrated on the thoracic study of 12/25/2018 is not clearly demonstrated on today's study. The kidneys are without evidence of hydronephrosis or mass. The adrenal glands are stable in appearance compared to the previous studies. The spleen is not enlarged. The pancreas is unremarkable. There is some stool and gas in the colon. The small bowel is not distended. The aorta is not distended although partially calcified. There is no evidence of significant adenopathy. Pelvis: There has been previous appendectomy. There is some contour abnormality in the anterior uterine fundus which may be due to a leiomyoma. This appearance was also present on the previous study of 2014. There is no evidence of diverticulitis. There are no masses. The urinary bladder is not particularly distended. There are bone islands present in the left femoral head and right femoral head. There is vacuum disc phenomenon at L5-S1. IMPRESSION: No evidence of acute disease in the abdomen or pelvis. No definite evidence of metastatic disease. Postobstructive pneumonia in the right lower lobe with probable endobronchial obstruction. Electronically signed by Irwin Hadley 12/26/2018 8:28 AM
[2018-12-26] MEDS: NICODERM PATCH TD SCH (09:33)
--- NOTE | 2018-12-26 09:48 | PROGRESS NOTE ---
DATE: 12/26/2018 SUBJECTIVE: This morning, Ms. Santo refers to be doing the same. Stable. Still has pain to the right posterior chest. She is still coughing and has residual shortness of breath. Ms. Santo was transferred from [facility] for higher level of care yesterday. PHYSICAL EXAMINATION: Current Vital Signs: Blood pressure is 147/83, pulse of 118, respirations are 20, temperature is 97.9 degrees, the patient is saturating 96% on nasal cannula. General Examination: Ms. Santo is a 43-year-old, female. She is in bed. She is not in any cardiopulmonary distress. HEENT: Mucosa is pink and moist. She has a BMI of 41.8. Chest: Air entry is bilaterally reduced. There is a prolonged expiratory phase of respiration. There is also some distant end-expiratory wheezing bilaterally. Cardiovascular: Regular rate and rhythm. Abdomen: Soft. Distended but nontender. Bowel sounds present. Extremities: No pedal edema. VALIDATION SCIENTIST: The patient is awake, alert, and oriented. There is no focal neurological deficit. LABORATORY DATA: WBC is 14.48, hemoglobin is 11.1, platelet count of 273,000. Chemistry is also reviewed and within normal range except glucose which is 174. Blood cultures are pending. IMAGING STUDIES: A chest x-ray which was done yesterday did suggest hilar and possible mediastinal lymphadenopathy. A CT scan of the chest yesterday showed a large right perihilar mass compressing the right lower lobe bronchus. There is bilateral hilar mediastinal lymphadenopathy. A CT scan of the abdomen and pelvis showed no evidence of acute disease in the abdomen or pelvis. No definite evidence of metastatic disease. There is a postobstructive pneumonia in the right lower lobe with probable endobronchial obstruction. ASSESSMENT: 1. Acute hypoxemic respiratory failure. Patient continues to be on oxygen therapy. 2. Right, large perihilar mass in a patient with extensive smoking history and chronic obstructive pulmonary disease. This is concerning for lung malignancy. Her CT scan of the abdomen and pelvis was unremarkable for any distant metastasis. We are pending endoscopy for biopsy. 3. Right lower lobe postobstructive pneumonia. Patient is on antimicrobial therapy. 4. Chronic obstructive pulmonary disease with bronchospasm. We are going to continue with standard of care. Pulmonary medicine has been consulted. 5. Hoarseness, most likely secondary to the underlying pulmonary malignancy. PLAN: In general, Ms. Santo seems to be having respiratory symptoms for a very long time. She had been admitted to [facility] in late September and was treated for pneumonia. She has been to emergency rooms multiple times including [facility] for related respiratory symptoms. She has been on oxygen at home. She was brought in. She came to the emergency room yesterday because of the same respiratory symptoms. Imaging studies revealed right hilar and mediastinal lymph nodes which is concerning for malignancy, and the patient is being worked up for that. cc: Price Poon MD
[2018-12-26] MEDS: MORPHINE IV PRN ×3 (10:40→21:48)
[2018-12-26] MEDS: KLONOPIN PO PRN ×2 (14:50→21:50)
[2018-12-26] MEDS ORDERED: ZOFRAN IV PRN (15:29)
[2018-12-26] MEDS: PRILOSEC PO SCH (15:38)
[2018-12-26] MEDS: VANCOMYCIN 2 GM in NS 500 ML IV SCH (15:58)
--- NOTE | 2018-12-26 18:24 | PULMONOLOGY PROGRESS NOTE ---
DATE: 12/26/2018 SUBJECTIVE: The patient is awake and alert. She has a persistent cough and mild dyspnea. She denies fevers or chills. OBJECTIVE: Vital signs: The patient has been afebrile for the last 24 hours. Blood pressure 146/90, heart rate 107, respiratory rate 18, saturation 96%on 2 L per nasal cannula. HEENT: Pupils are equal and reactive. Oropharynx is clear. Neck: Is supple. Chest: Reveals diminished breath sounds, right base. CARDIAC EXAM: S1 S2. Abdomen: Is obese and soft. Extremities: Are without edema. LABORATORIES: CT scan of the abdomen and pelvis was performed. No evidence of acute disease identified in the abdomen or pelvis. IMPRESSION: A 43-year-old with: 1. Acute hypoxic respiratory failure. 2. Chronic obstructive pulmonary disease. 3. Large right lower lobe/right hilar mass with postobstructive atelectasis. 4. Extensive mediastinal adenopathy. 5. Ongoing tobacco use. 6. Obesity. PLAN: 1. The patient has been made NPO after midnight. 2. Proceed with bronchoscopy on Sunday morning. All questions were answered along with the risks and benefits of the procedure. cc: Arash Mello MD
[2018-12-26] MEDS: NORVASC PO SCH (20:33)
[2018-12-26] MEDS ORDERED: PHENERGAN IV ONE (21:41)
[2018-12-26] MEDS ORDERED: SODIUM CHLORIDE 0.9% INJ ONE (21:41)
[2018-12-27] MEDS: DUONEB (A & A) INH SCH ×6 (03:22→23:08)
[2018-12-27] MEDS: ZOSYN 3.375 GM in NS 50 ML IV SCH ×3 (03:51→20:14)
[2018-12-27] MEDS: SOLU-MEDROL IV SCH ×3 (05:52→20:17)
[2018-12-27] MEDS: PRILOSEC PO SCH (06:19)
[2018-12-27] MEDS ORDERED: DIPRIVAN 1% ONE (07:24)
[2018-12-27] MEDS ORDERED: QUELICIN (DOSE) ONE (07:27)
[2018-12-27] MEDS ORDERED: ROBINUL ONE (07:27)
[2018-12-27] MEDS ORDERED: VERSED ONE ×2 (07:28→08:11)
[2018-12-27] MEDS ORDERED: EPINEPHRINE ONE (07:34)
[2018-12-27] MEDS ORDERED: XYLOCAINE 2% VISCOUS ONE (07:35)
[2018-12-27] MEDS ORDERED: SODIUM CHLORIDE 0.9% 20 ML ONE (07:35)
[2018-12-27] MEDS ORDERED: XYLOCAINE 2% ONE (07:35)
[2018-12-27] MEDS ORDERED: PRECEDEX ONE (08:11)
[2018-12-27] MEDS ORDERED: FENTANYL ONE (09:14)
--- NOTE | 2018-12-27 11:13 | PROGRESS NOTE ---
DATE: 12/27/2018 SUBJECTIVE: This morning Ms. Santo refers to be doing well. Still has some residual cough and she was awaiting for her bronchoscopy today. OBJECTIVE: Vital signs: Blood pressure was 122/71, pulse of 115, respirations 20, temperature 98.5 degrees. General: Ms. Santo is a 43-year-old female. She was in bed, no distress. HEENT: Mucosa is pink and moist. Anicteric. Acyanotic. Neck: Supple. Chest: Air entry is bilaterally reduced. There is still some prolonged expiratory phase of respiration and some distant end expiratory wheezing. Cardiovascular: Regular rate and rhythm. Abdomen: Soft, nontender. Bowel sounds present. Extremities: No pedal edema. SEAT SCOOPER MACHINE: Patient is awake, alert, and oriented. LABORATORY DATA: None for today and no new imaging studies. ASSESSMENT: 1. Acute hypoxemic respiratory failure improving. 2. Right large perihilar mass suspicious for lung malignancy. Patient is awaiting bronchoscopy today. 3. Right lower lobe postobstructive pneumonia. Patient is on antibiotics. 4. Chronic obstructive pulmonary disease with mild exacerbation. We will continue with standard of care. 5. Hoarseness improved For today, we are going to continue with the IV antibiotics, steroids, and bronchodilation therapy. The patient's other comorbidities including hypertension are all being addressed. We will be waiting for the results on the bronchoscopy. cc: Price Poon MD MTDD
[2018-12-27] MEDS: VANCOMYCIN 2 GM in NS 500 ML IV SCH (12:00)
[2018-12-27] MEDS: NICODERM PATCH TD SCH (13:02)
[2018-12-27] MEDS: MORPHINE IV PRN ×3 (13:08→22:09)
--- NOTE | 2018-12-27 13:15 | OPERATIVE NOTE ---
PROCEDURE DATE: 12/27/2018 PROCEDURE PERFORMED: Bronchoscopy. CLINICAL INDICATIONS: A 43-year-old with history of tobacco use with large right perihilar mass with obstruction of the right lower lobe bronchus. DESCRIPTION OF PROCEDURE: After informed consent was obtained, patient was brought to the operating room. All risk and benefits were discussed with the patient prior to the procedure. These were rediscussed prior to sedation, and she had no questions. A time-out was performed. Topical anesthesia was achieved with viscous lidocaine to the left nostril with 2% lidocaine instilled above the vocal cords and 1% lidocaine instilled below the vocal cords during the procedure. Monitored anesthesia care was provided by the anesthesia group. When sedation had been achieved, bronchoscope was advanced through the left nostril to the level of the vocal cords. There is some white plaquing on the vocal cords consistent with candidiasis. The bronchoscope was advanced through the cords into the trachea. There was mild increase in clear secretions in the trachea. Secretions from the proximal tracheobronchial tree in the left upper lobe were suctioned for sample. The left lung was evaluated first. The bronchoscope was directed to the left upper lobe. In the apical posterior in the anterior segment of the left upper lobe, there was extensive mucus and mucus plugging. After repeated washings, this area was cleared. The airways appeared patent. There was some residual inflammatory appearing changes in this area and a brushing was performed. The bronchoscope was directed to the right side. There was extensive inflammation and distortion of the airway. There was bowing of the right mainstem bronchus making it difficult to visualize the right upper lobe. The bronchoscope could be advanced toward this area with brief visualization, but the airway could not be engaged. There were extensive secretions both clear and bloody from the right lower lobe. Right middle lobe entrance could be marginally identified but could not be accessed. Basilar segments could not be identified. Apparent tumor was present, but only briefly visualized due to repeated swelling of the airway with secretions and blood. Topical epinephrine was instilled in this area to control bleeding. Multiple endobronchial biopsies were performed in an essentially blind fashion due to the blood and secretions in the right lower lobe. Multiple samples were obtained. Epinephrine was repeated at least twice to help control bloody secretions. The patient developed mild tachycardia during the procedure, but had no significant oxygen desaturations and otherwise did well. IMPRESSION: 1. Mucous plugging with inflamed/abnormal mucosa in the left upper lobe as described above. A brushing was performed. 2. Extensive distortion edema and secretions in the right lower lobe as outlined above. Washings and multiple endobronchial biopsies were performed. cc: Arash Mello MD
[2018-12-27] MEDS: NORCO-10 PO PRN ×3 (14:18→23:32)
[2018-12-27] MEDS: PRINIVIL PO SCH (20:11)
[2018-12-27] MEDS: NORVASC PO SCH (20:11)
[2018-12-27] MEDS: KLONOPIN PO PRN (22:14)
[2018-12-28] MEDS: MORPHINE IV PRN ×3 (02:05→10:16)
[2018-12-28] MEDS: DUONEB (A & A) INH SCH ×6 (03:18→23:29)
[2018-12-28] MEDS: NORCO-10 PO PRN ×5 (03:33→23:24)
[2018-12-28] MEDS ORDERED: ZOSYN ONE (03:54)
[2018-12-28] MEDS: ZOSYN 3.375 GM in NS 50 ML IV SCH ×6 (03:59→23:00)
[2018-12-28] MEDS: SOLU-MEDROL IV SCH ×3 (05:54→20:27)
[2018-12-28] MEDS: VANCOMYCIN 2 GM in NS 500 ML IV SCH (05:54)
[2018-12-28] MEDS: PRILOSEC PO SCH (06:37)
[2018-12-28] MEDS: NICODERM PATCH TD SCH (09:34)
[2018-12-28] MEDS ORDERED: DILAUDID IV PRN (10:41)
[2018-12-28] MEDS ORDERED: MICRO-K PO SCH (10:45)
[2018-12-28] MEDS ORDERED: LASIX PO SCH (10:45)
[2018-12-28] MEDS ORDERED: NS 1,000 ML IV ONE (11:00)
[2018-12-28] MEDS: DILAUDID IV PRN ×4 (11:59→23:00)
--- NOTE | 2018-12-28 13:07 | PROGRESS NOTE ---
DATE: 12/28/2018 SUBJECTIVE: This morning Ms. Santo refers to be doing well. Still complaining of some pain to the right side of her chest at the back. OBJECTIVE: Vital signs: Blood pressure is 152/87, pulse of 88, respiration is 22, temperature 97.4 degrees. The patient is saturating 98% on nasal cannula. General exam: Ms. Santo is a 43- year-old female. She is in bed in no distress. HEENT: Mucosa is pink and moist. Anicteric. Acyanotic. Neck: Supple. Chest: Air entry is bilaterally reduced. There are still some prolonged expiratory phase of respiration with diffuse expiratory wheezing. No crackles. Cardiovascular: Regular rate and rhythm. Abdomen: Soft. Extremities: No pedal edema. TUNNEL DRIER OPERATOR: Patient is awake, alert and oriented. LABORATORY DATA: None for today. The patient's pathology report is still pending. ASSESSMENT: 1. Acute hypoxemic respiratory failure, improved. 2. Right large perihilar mass suspicious for lung malignancy. Patient is status post bronchoscopy. Report has been reviewed. Pulmonary Medicine is on board. We are pending the pathology report. 3. Right lower lobe postobstructive atelectasis versus pneumonia. Patient is on antimicrobial therapy. 4. Hoarseness, improved. 5. Chronic obstructive pulmonary disease in exacerbation. Patient is on standard of care. 6. Chest pain secondary to multiple rib fractures and atelectasis. Continue pain management. cc: Price Poon MD MTDD
[2018-12-28] MEDS: LASIX PO SCH (13:40)
[2018-12-28] MEDS: MICRO-K PO SCH (13:41)
--- NOTE | 2018-12-28 16:34 | PULMONOLOGY PROGRESS NOTE ---
DATE: 12/28/2018 SUBJECTIVE: The patient is awake and alert. She is without new complaints. OBJECTIVE: Vital Signs: The patient has been afebrile for the last 24 hours. Blood pressure 165/98, heart rate 108, respiratory rate 22, oxygen saturation 99% on nasal cannula. HEENT: Pupils are equal and reactive. Oropharynx appears clear. Neck: Neck is supple. Chest: Reveals decreased breath sounds right base. Cardiac exam: S1, S2. Abdomen: Soft and obese. Extremities: Without edema. LABORATORIES: Washings from the right lower lobe and from the trachea are growing gram-positive cocci. IMPRESSION: A 43-year-old with: 1. Acute hypoxemic respiratory failure. 2. Right lower lobe mass with postobstructive atelectasis/pneumonia. 3. Gram-positive cocci on bronchial and tracheal wash as per above. 4. Chronic obstructive pulmonary disease. 5. Extensive mediastinal adenopathy. 6. Obesity. PLAN: 1. Continue current antibiotic regimen, which covers gram-negative and gram-positive organisms. 2. Await bronchoscopy biopsy report. cc: Arash Mello MD
[2018-12-28] MEDS: NORVASC PO SCH (20:26)
[2018-12-28] MEDS: KLONOPIN PO PRN (20:27)
[2018-12-28] MEDS: PRINIVIL PO SCH (20:27)
[2018-12-29] MEDS ORDERED: VANCOMYCIN 2 GM in NS 500 ML IV SCH (01:00)
[2018-12-29] MEDS: DILAUDID IV PRN ×5 (02:29→20:30)
[2018-12-29] MEDS: DUONEB (A & A) INH SCH ×6 (02:57→23:21)
[2018-12-29] MEDS: NORCO-10 PO PRN ×5 (03:34→21:58)
[2018-12-29] MEDS: SOLU-MEDROL IV SCH (05:04)
[2018-12-29] MEDS: ZOSYN 3.375 GM in NS 50 ML IV SCH ×2 (05:04→08:33)
[2018-12-29] MEDS: PRILOSEC PO SCH (06:23)
[2018-12-29] MEDS: MICRO-K PO SCH (08:34)
[2018-12-29] MEDS: LASIX PO SCH (08:35)
[2018-12-29] MEDS: NICODERM PATCH TD SCH (08:35)
[2018-12-29] MEDS: ISORDIL PO SCH ×3 (09:15→17:20)
[2018-12-29] MEDS: APRESOLINE PO SCH ×3 (09:15→17:20)
[2018-12-29] MEDS: KLONOPIN PO PRN ×2 (11:09→21:58)
[2018-12-29] MEDS: KEFZOL 2 GM/D5W 2 GM/50 ML IVPB IV SCH ×2 (12:08→17:19)
--- NOTE | 2018-12-29 14:59 | PROGRESS NOTE ---
DATE: 12/29/2018 SUBJECTIVE: Today, Ms. Santo refers to be doing okay. Still has a lot of pains everywhere, especially to the right lungs. OBJECTIVE: Vital Signs: Blood pressure is 171/92, pulse of 95, respirations 16, temperature 98.2 degrees, the patient is saturating 100%. General: Ms. Santo is a 43-year-old female. She is in bed. No distress. HEENT: Mucosa is pink and moist. Anicteric. Acyanotic. Neck: Supple. Chest: Air entry is bilaterally reduced. There is mild faint expiratory wheezing, but no crackles. Cardiovascular: Regular rate and rhythm. Abdomen: Soft, nontender. Extremities: No pedal edema. RACEHORSE TRAINER: The patient is awake, alert, and oriented. LABORATORY DATA: The bronchial washing has come back positive for MSSA. ASSESSMENT: 1. Acute on chronic hypoxemic respiratory failure. The patient is currently down to 2 liters of nasal cannula, which is her baseline. 2. Right large perihilar mass suspicious for lung malignancy. We are pending the pathology report. 3. Right lower lobe postobstructive pneumonia with culture positive for methicillin-sensitive Staphylococcus aureus. We have changed the current antimicrobial coverage to cefazolin, which can be also changed to something oral when the patient is ready for discharge. 4. Chronic obstructive pulmonary disease in exacerbation. The patient is on treatment. 5. Chest pain secondary to multiple rib fractures. Will continue with pain management. In general, I think Ms. Santo is doing well. She is actually nearing time for discharge. Her bronchial washing culture is positive for methicillin-sensitive Staphylococcus aureus, so we have changed her current antimicrobial coverage to target methicillin-sensitive Staphylococcus aureus. We think she is fairly at baseline for discharge. She is still pending the pathology report on the lung biopsy, but she can review this on an outpatient basis with Pulmonary Medicine and/or Hematology/Oncology. Will make plans for her discharge tomorrow. cc: Price Poon MD
[2018-12-29] MEDS: NORVASC PO SCH (20:30)
[2018-12-29] MEDS: PRINIVIL PO SCH (20:30)
[2018-12-30] MEDS: DILAUDID IV PRN ×3 (00:41→08:49)
[2018-12-30] MEDS: KEFZOL 2 GM/D5W 2 GM/50 ML IVPB IV SCH ×2 (00:47→08:49)
[2018-12-30] MEDS: DUONEB (A & A) INH SCH ×3 (03:18→11:50)
[2018-12-30] MEDS: NORCO-10 PO PRN ×2 (03:19→12:51)
[2018-12-30] MEDS: PRILOSEC PO SCH (06:13)
[2018-12-30 07:11] LABS: BASO# 0.03 X1000 (0.0-0.2); BASO% 0.2 % (0.0-0.8); EOS# 0.09 X1000 (0.0-0.7); EOS% 0.5 % (0.0-10.0); HEMATOCRIT 33.2 % (37.0-47.0); HEMOGLOBIN 10.4 g/dL (12.0-16.0); IMM GRAN# 0.33 X1000 (0.0-0.04); IMM GRAN% 1.9 % (0.0-0.5); LYMPH# 3.79 X1000 (1.2-3.4); LYMPH% 21.5 % (20.5-51.1); MCH 29.1 PG (27-31); MCHC 31.3 g/dL (33-37); MONO# 2.25 X1000 (0.11-0.59); MONO% 12.8 % (1.7-9.3); MPV 11.1 FL (7.4-10.4); NEUT% 63.1 % (42.2-75.2); PLT 294 X1000 (130-400); RBC 3.57 XMIL (4.2-5.4); RDW 14.5 % (11.5-14.5); WBC 17.59 X1000 (4.8-10.8)
[2018-12-30 07:39] LABS: AGAP 7; ALBUMIN 2.8 g/dL (3.5-5.0); BUN 24 mg/dL (8-22); CALCIUM 7.5 mg/dL (8.8-10.2); CHLORIDE 103 mmol/L (98-107); COSMO 281; CREATININE 0.7 mg/dL (0.5-0.9); ESTIMATED GFR > 60; GLUCOSE 92 mg/dL (70-104); PHOSPHORUS 2.5 mg/dL (2.7-4.5); POTASSIUM 3.8 mmol/L (3.5-5.1); SODIUM 139 mmol/L (136-145); TCO2 29 mmol/L (25-35)
[2018-12-30] MEDS: APRESOLINE PO SCH (08:48)
[2018-12-30] MEDS: LASIX PO SCH (08:48)
[2018-12-30] MEDS: ISORDIL PO SCH (08:49)
[2018-12-30] MEDS: NICODERM PATCH TD SCH (08:49)
[2018-12-30] MEDS: KLONOPIN PO PRN (08:49)
[2018-12-30] MEDS ORDERED: SOLU-MEDROL IV SCH (09:00)
[2018-12-30 12:04] VITALS: BP 169/86
--- NOTE | 2019-01-01 10:24 | DISCHARGE SUMMARY ---
ADMISSION DATE: 12/25/2018 DISCHARGE DATE: 12/30/2018 DISPOSITION: Home. FOLLOWUP: 1. Dr. Mello 2. Dr. Aaron CONSULTATION DURING THIS ADMISSION: 1. Pulmonary Medicine was consulted. Patient was seen by Dr. Mello. 2. Hematology/Oncology was consulted. Patient was seen by Dr. Aaron. INVASIVE PROCEDURE DONE DURING THIS ADMISSION: Bronchoscopy was done by Dr. Mello on 12/27/2018. IMAGING STUDIES: 1. A chest x-ray did show suspected hilar and possibly mediastinal lymphadenopathy, right parahilar nodule. 2. A CT scan of the chest did show a large right perihilar mass measuring at least 4.6 cm compressing the right lower lobe bronchus with right lower lobe consolidation and atelectasis. There was also bilateral hilar and mediastinal lymphadenopathy. 3. A CT scan of the abdomen and pelvis showed no evidence of acute disease. No definite evidence of met metastatic disease. DIAGNOSIS AT TIME OF ADMISSION: 1. Right large hilar mass. 2. Right lower lobe pneumonia. 3. Right upper lobe pulmonary nodule. DIAGNOSIS AT THE TIME OF DISCHARGE: 1. Acute on chronic hypoxemic respiratory failure. 2. Right large perihilar mass status post bronchoscopy with the preliminary pathology report suggestive of an non-small cell carcinoma with patchy tumor necrosis. The patient will follow up with Dr. Aaron. 3. Right lower lobe postobstructive pneumonia with culture positive for Methicillin sensitive Staphylococcus aureus. 4. Chronic obstructive pulmonary disease with exacerbation on presentation. 5. Chest pain secondary to multiple rib fractures in healing. 6. Hypertension. DISCHARGE MEDICATIONS: 1. Lisinopril 40 mg p.o. daily. 2. Amlodipine 10 mg p.o. daily. 3. Albuterol inhalers. 4. Omeprazole 40 mg p.o. daily. 5. Hydralazine 25 mg 3 times per day. 6. Prednisone 20 mg p.o. daily. 7. Isordil 10 mg p.o. 3 times per day. 8. Klonopin 0.5 p.o. q.8. 9. Keflex 500 p.o. q.8. 10. Dilaudid 2 mg p.o. q.4. PRESENTING COMPLAINT: Shortness of breath, cough for multiple days. HISTORY OF PRESENTING COMPLAINT: Ms. Santo is a 43-year-old female who has been treated for the past 4 or 5 months for recurrent pneumonias and respiratory associated symptoms. She has been seen in [facility], [facility] lately for the same concern. She came to [place], was evaluated and a CT scan did show a concern for a perihilar mass on the left at the right side. The patient was transferred from [place] to [facility] for higher level of care. HOSPITAL COURSE: . Ms. Santo was admitted to the medical floor, was initially started on broad- spectrum IV antimicrobial therapy. Pulmonary medicine was consulted. Patient was seen by Dr. Mello. A bronchoscopy was done which eventually came out to be a non-small cell lung cancer. This pathology report actually came moments before she left and this was communicated to her by Dr. Mello. She was also found to be in COPD exacerbation and this was treated with standard of care. Ms. Santo was also seen by heme-onc and will be followed up by them on outpatient basis. At the day of the discharge Ms. Santo referred to be doing well. Shortness of breath has significantly improved. She has been given a refill on his on her prescription since she does not have any primary care. She has, however, been advised to follow up with Dr. Mello as well as with Dr. Aaron. All the discharge instructions were discussed with her and she voiced understanding. TIME SPENT FOR DISCHARGE: 35 minutes. cc: MD Armida Hamlin MD James E. Boyle, MD
== END 2018-12-30 13:29 | disposition home or self-care (01) | DRG 180 ==
LOC: P.ED 07:25 → 3N 12:23 → SUATTDRO 12:23 → 3N 23:14
PROVIDERS: ATTEND Internal Medicine
CPT/HCPCS: 71020; 71046; 71260; 74177; 80048; 80053; 80069; 80202; 81001; 81025; 82378; 82550; 82805; 83605; 83615; 84484; 85025; 85610; 85730; 87015; 87040; 87070; 87077; 87102; 87116; 87147; 87186; 87205; 87206; 88305; 93005; 94640; 94761; 94799; 96365; 96367; 96375; 99285; A9270; J0171; J0330; J0690; J1170; J1885; J2250; J2270; J2405; J2543; J2550; J2920; J2930; J3010; J3370; J7030; J7040; Q9966; Q9967